=== PATIENT | male | born 2000 | race Caucasian/White ===

== ENCOUNTER 2020-01-04 17:06 | Emergency (ER) | payer SELFPAY ==
[2020-01-04 17:23] VITALS: BP 134/68
[2020-01-04] MEDS ORDERED: HYDROcod/ACETAM 5/325 MG TABLET PO STA (18:29)
--- NOTE | 2020-01-04 18:31 | ED Physician Documentation ---
PD HPI UPPER EXT INJURY - Stated complaint Stated Complaint: L WRIST INJURY - Chief complaint Chief Complaint: Trauma Ext - History obtained from History obtained from: Patient - Additonal information Additional information: He was up on a ladder and fell backwards. Broke his fall first with his knees which do not hurt but then landed on outstretched backwards left wrist which is his nondominant side. This happened today. Pain is moderate to severe. No other injuries. Review of Systems Constitutional: reports: Reviewed and negative Throat: reports: Reviewed and negative Cardiac: reports: Reviewed and negative Respiratory: reports: Reviewed and negative PD PAST MEDICAL HISTORY - Past Medical History Cardiovascular: Other Respiratory: None Neuro: None Endocrine/Autoimmune: None GI: None : None HEENT: None Psych: None Musculoskeletal: None Derm: None Other Past Medical History: Partial AV Canal Defect - Past Surgical History Past Surgical History: Yes Ortho: Other Cardiovascular: Other - Present Medications Home Medications: Ambulatory Orders Medication Instructions Recorded Confirmed Hydrocodone/Acetaminophen 1 - 2 tab PO Q6H PRN #15 tablet 01/04/20 [Hydrocodone-Acetamin 5-325 mg] - Allergies Allergies/Adverse Reactions: Allergies Allergy/AdvReac Type Severity Reaction Status Date / Time bee venom protein (honey bee) Allergy Anaphylaxis Verified 01/04/20 17:23 honey Allergy Anaphylaxis Verified 01/04/20 17:23 ibuprofen Allergy Hives Verified 01/04/20 17:23 - Social History Does the pt smoke?: No Smoking Status: Never smoker Does the pt drink ETOH?: Yes Does the pt have substance abuse?: No - Immunizations Immunizations are current?: Yes PD ED PE NORMAL - Vitals Vital signs reviewed: Yes - General General: Alert and oriented X 3, No acute distress - HEENT HEENT: PERRL, EOMI - Neck Neck: Supple, no meningeal sign, No bony TTP - Extremities Extremities: Other (Tender over the dorsal wrist, suggesting a mild deformity. Normal neurovascular function in the hand. The remainder of his extremities are nontender.) - Neuro Neuro: Alert and oriented X 3, Normal speech Results - Vitals Vitals: Vital Signs - 24 hr 01/04/20 17:18 Temperature 37 C Heart Rate 68 Respiratory 16 Rate Blood Pressure 134/68 H O2 Saturation 99 Oxygen O2 Source Room air - Rads (name of study) L wrist Radiology: EMP read contemporaneously (There is a mildly displaced and impacted distal radius and ulnar styloid fracture) Procedures - Splint (location) LUE Splint applied by: Tech Type of splint: Fiberglass, Long arm, Sugar tong Other: Patient tolerated well, No complications, Neurovascular intact, Sling provided Departure - Departure Disposition: 01 Home, Self Care Clinical Impression: Wrist fracture, left Qualifiers: Encounter type: initial encounter Fracture type: closed Qualified Code(s): S62.102A - Fracture of unspecified carpal bone, left wrist, initial encounter for closed fracture Condition: Good Record reviewed to determine appropriate education?: Yes Instructions: ED Fx Colles Wrist Redu Requ Follow-Up: [facility] [Provider Group] Prescriptions: Hydrocodone/Acetaminophen [Hydrocodone-Acetamin 5-325 mg] 1 - 2 tab PO Q6H PRN #15 tablet PRN Reason: Pain Comments: Follow-up with the orthopedics clinic this week, keep the splint on and dry, do not remove it. Elevate is much as possible. Do not drink or drive with prescription pain medication.
--- NOTE | 2020-01-04 18:44 | XRAY Report ---
PROCEDURE: Wrist 4 View LT INDICATIONS: Trauma TECHNIQUE: 4 views of the wrist were acquired. COMPARISON: None FINDINGS: Bones: There is a moderately displaced comminuted fracture of the distal radius with articular surfac e extension to the radiocarpal joint. Moderately displaced comminuted ulnar styloid fracture is prese nt. No suspicious bony lesions. Scaphoid view: No evidence of scaphoid fracture. Soft tissues: No suspicious soft tissue calcifications. IMPRESSION: Distal radial and ulnar fractures. Reviewed by: Gordon Toledo MD on 01/04/2020 6:43 PM PDT Approved by: Gordon Toledo MD on 01/04/2020 6:43 PM PDT Station ID: [id number]
== END 2020-01-04 19:00 | disposition home or self-care (01) ==
LOC: ED 17:06
DX: S52.512A Displaced fracture of left radial styloid process, initial encounter for closed fracture (principal); W11.XXXA Fall on and from ladder, initial encounter; X50.1XXA Overexertion from prolonged static or awkward postures, initial encounter; Y93.9 Activity, unspecified
CPT/HCPCS: 29125; 73110; 99283; 99284; A9270